=== PATIENT | female | born 1980 | race Asian ===

== ENCOUNTER 2017-05-04 23:32 | Emergency (ER) | payer SELFPAY ==
[~2017-05-04] VITALS: Ht 167.6 cm; Wt 127.9 kg
[~2017-05-04 23:32] MED LIST: AMLO10TA2 PO; AMLO5TAB2 PO; BP MED; CARV6.2512 PO; CIPR500T3 PO; HYDR25TA6 PO; LISI-170 PO; LOSA50TA2 PO
[2017-05-04 23:34] VITALS: BP 150/100
[2017-05-05] MEDS ORDERED: ONDANSETRON ODT 8 MG PO ONE (00:30)
[2017-05-05] MEDS ORDERED: KETOROLAC 30 MG/1 ML IM ONE (00:30)
[2017-05-05] MEDS ORDERED: KETOROLAC 30 MG/1 ML ONE ×2 (00:41→00:45)
[2017-05-05] MEDS ORDERED: ONDANSETRON ODT 8 MG ONE (00:41)
[2017-05-05 01:30] LABS: RAPID INFLUENZA A Negative (Negative); RAPID INFLUENZA B Negative (Negative)
== END 2017-05-05 02:03 | disposition home or self-care (01) ==
LOC: ED 05-05 00:15
DX: B34.9 Viral infection, unspecified (principal); I10 Essential (primary) hypertension
CPT/HCPCS: 71046; 87400; 96372; 99285; J1885; Q0162